=== PATIENT | male | born 1950 | race Caucasian/White ===

== ENCOUNTER 2021-03-17 17:14 | Emergency (ER) | payer MEDICARE, OTHER ==
[2021-03-17 18:18] LABS: BASOPHIL 0.3 % (0-2); EOSINOPHIL 2.6 % (0-7); HCT 44.4 % (42.0-52.0); HGB 14.5 g/dl (13.2-18.0); LYMPHOCYTE 6.3 % (15-48); MCH 28.8 pg (25.0-31.0); MCHC 32.7 g/dL (32.0-36.0); MCV 88.1 fL (78.0-100.0); MONOCYTE 7.7 % (0-12); MPV 9.9 fL (6.0-9.5); NEUTROPHIL 82.7 % (41-80); NRBC 0; PLT 301 K/uL (150-400); RBC 5.04 M/uL (4.70-6.00); RDW 13.3 % (11.5-14.0); WBC 9.8 K/uL (4.0-10.5)
[2021-03-17 18:48] LABS: ALBUMIN 2.5 g/dL (3.4-5.0); BILIRUBIN - TOTAL 0.6 mg/dL (0.2-1.0); GLOBULIN (CALCULATION) 5.4 g/dL; POTASSIUM 3.6 mmol/L (3.5-5.1); TOTAL PROTEIN 7.9 g/dL (6.4-8.2)
[2021-03-17 18:51] LABS: BILIRUBIN NEGATIVE (NEGATIVE); BLOOD TRACE-INTACT Ery/uL (NEGATIVE); CLARITY CLEAR (CLEAR); COLOR YELLOW (YELLOW); GLUCOSE (U) 3+ mg/dL (NORMAL); LEUKOCYTES NEGATIVE Leu/uL (NEGATIVE); NITRITE NEGATIVE (NEGATIVE); PROTEIN NEGATIVE (NEGATIVE); SPECIFIC GRAVITY <=1.005 (1.001-1.030); UROBILINOGEN 0.2 mg/dL (0.2-1.0); pH 5.5 (5.0-9.0)
[2021-03-17 18:59] LABS: BACTERIA TRACE
[2021-03-17 19:04] LABS: LACTIC ACID 2.2 mmol/L (0.4-1.9)
[2021-03-17] MEDS ORDERED: BACTRIM DS TAB1 EACH PO (23:59)
[2021-03-17] MEDS ORDERED: OXY-IR 5MG5 MG PO (23:59)
== END 2021-03-18 00:28 | disposition home or self-care (01) ==
LOC: FER 17:14
PROVIDERS: Emergency Medicine Emergency Medical Services
DX: R55 Syncope and collapse (principal); C79.9 Secondary malignant neoplasm of unspecified site; R91.1 Solitary pulmonary nodule; E11.9 Type 2 diabetes mellitus without complications; F17.210 Nicotine dependence, cigarettes, uncomplicated; R10.9 Unspecified abdominal pain; Z95.1 Presence of aortocoronary bypass graft; Z20.822 Contact with and (suspected) exposure to COVID-19; Z86.73 Personal history of transient ischemic attack (TIA), and cerebral infarction without residual deficits; Z98.890 Other specified postprocedural states
CPT/HCPCS: 36415; 70450; 71045; 71275; 80053; 81001; 82140; 82150; 83605; 83690; 84484; 85025; 85379; 87088; 93005; J1170; J1885; J2405; J7030; Q9967; U0002